=== PATIENT | male | born 1965 | race Caucasian/White ===

== ENCOUNTER 2017-03-30 11:04 | Emergency (ER) | payer BC ==
--- NOTE | 2017-03-30 11:37 | PDOC ---
History of Present Illness - General Chief Complaint: Syncope/Near Syncope Stated Complaint: syncope Time Seen by Provider: 03/30/17 11:13 - History of Present Illness Initial Comments: 03/30/17 12:01 Chief complaint: Syncope History of present illness: 52 years old no significant past medical history suffered a partially torn calf muscle to his right calf yesterday while playing basketball. Was seen and evaluated by orthopedics determined not to have an Achilles rupture was discharged home. Last night patient woke up at approximately 3 AM with some discomfort to his calf. Decided to go downstairs to ice and elevate it. He sit up from bed walk to the bathroom began to experience lightheadedness. When he arrived to the through his lightheadedness was worse he felt as if he was given a pass out and passed out. Mild head injury patient woke up on the ground went back to bed. This morning after discussing with his [id number] presents to the emergency department for evaluation. Currently asymptomatic. Denies any headache dizziness chest pain shortness of breath and nausea no vomiting no diarrhea complaining of moderate pain to his right calf is persistent constant worse with movement no alleviating factors. Last night the dizziness he experienced was transient, moderate to severe in severity, exacerbated by change in position, standing up. Resolved after the syncopal episode. No other exacerbating or alleviating factors Past History - Past Medical History Allergies/Adverse Reactions: Allergies Allergy/AdvReac Type Severity Reaction Status Date / Time Penicillins Allergy Severe Verified 03/30/17 11:30 Home Medications: Ambulatory Orders NK [No Known Home Medication] 03/30/17 Review of Systems - Review of Systems Comments:: 03/30/17 12:02 ROS: A complete review of 10 out of 10 review of systems is taken and is negative apart from what is previously mentioned below and in the HPI. *Physical Exam - Physical Exam Comments: 03/30/17 12:03 Vitals: Triage Vital signs reviewed General Appearance: no acute distress, well nourished well developed, Head: Atraumatic, Eyes: Pupils equal reactive round, extraocular movement intact Throat: Posterior oropharynx without erythema, mucous membranes moist, Neck: Supple;No Nucal rigidity Chest Wall: Nontender Cardiac: Regular rate and rhythym, no murmurs, no rubs, no gallops, Lungs: Clear to auscultation bilateral, good air movement bilaterally, Abdomen: Soft, non distended, normal bowel sounds, non tender to palpation Extremities: Swelling and tenderness to right calf. Tenderness palpation posteriorly. Achilles tendon intact. Neurovascularly intact distally. Skin: Warm and dry, no rashes or lesions, no rash, no petechiae Neuro: AOX3; Cranial Nerves 2-12 grossly intact, Strength intact to all extremities, Sensation intact to all extremities,gait normal Psych: normal mood, normal affect Heart Score/ECG Review - ECG Impressions Comment:: 03/30/17 12:04 EKG performed at 1137 demonstrates rate of 64, rhythm of sinus, axis equal to normal. No ST elevations no T-wave inversions, no evidence of Brugada, WPW, prolonged QT EKG interpreted by me ED Treatment Course - LABORATORY CBC & Chemistry Diagram: 03/30/17 11:50 03/30/17 11:50 - RADIOLOGY Radiology Studies Ordered: Category Date Time Status DUPLEX VASCUL US-1 LEG [US] Stat Ultrasound 03/30/17 11:14 Ordered Medical Decision Making - Medical Decision Making 03/30/17 12:05 52 years old no significant past medical history status post calf muscle tear yesterday while playing basketball awoke from sleep stood up quickly went to the bathroom became lightheaded and suffered a syncopal event. Very minor head injury Differential diagnosis includes vasovagal syncope versus dehydration versus cardiac syncope Normal neurologic examination we'll check EKG blood work hydrate pain medication ultrasound calf observe and reassess 03/30/17 13:44 Reevaluation patient comfortable no apparent distress well-appearing. Nonischemic EKG normal blood work normal head CT normal Doppler. Patient has crutches will follow-up with orthopedics history and examination most consistent with vagal syncope we'll recommend fluids and rest avoiding changing positions quickly he'll follow up with his primary care provider this week and return to ED for severe worsening symptoms or for any concerns. *DC/Admit/Observation/Transfer Diagnosis at time of Disposition: Syncope Qualifiers: Syncope type: vasovagal syncope Qualified Code(s): R55 - Syncope and collapse - Discharge Dispostion Admit: No - Referrals - Patient Instructions Printed Discharge Instructions: DI for Syncope in Adults (Fainting) Additional Instructions: Crutches, Triston wrap for comfort, ice affected calf keep elevated as much for possible discussed with Dr. Perez about obtaining a boot. Return to ED for any chest pain shortness of breath severe worsening symptoms or for any concerns. - Post Discharge Activity
[2017-03-30] MEDS ORDERED: ACETAMINOPHEN INJECTION 100 ML IVPB ONE (12:04)
[2017-03-30] MEDS ORDERED: ACETAMINOPHEN 1000 MG/100 ML VIAL (NON FORMULARY) IVPB ONE (12:06)
[2017-03-30] MEDS ORDERED: SODIUM CHLORIDE 0.9% 1000 ML INFUS.BAG IV ONE (12:07)
[2017-03-30 12:13] LABS: BASO % 0.2 % (0-2.0); EOS % 0.6 % (0-4.5); HEMATOCRIT 43.5 % (35.4-49); HEMOGLOBIN 14.9 GM/dl (11.7-16.9); LYMPH % 15.6 % (8-40); MCH 30.2 pg (25.7-33.7); MCHC 34.2 g/dl (32.0-35.9); MEAN CELL VOLUME 88.3 fl (80-96); MEAN PLT VOLUME 7.6 fl (7.5-11.1); MONO % 7.6 % (3.8-10.2); PLATELET COUNT 179 K/MM3 (134-434); RBC 4.92 M/mm3 (4.00-5.60); WHITE BLOOD COUNT 7.7 K/mm3 (4.0-10.8)
[2017-03-30 12:15] VITALS: BP 132/77; PULSE 65; TEMP 98.5; BMI 31.5
[2017-03-30 12:29] LABS: ANION GAP 3 (8-16); BLOOD UREA NITROGEN 14 mg/dl (7-18); CALCIUM 9.1 mg/dl (8.4-10.2); CHLORIDE 105 mmol/L (98-107); CO2 28 mmol/L (22-28); CREATININE 0.9 mg/dl (0.6-1.3); GLUCOSE,RANDOM 100 mg/dl (74-106); SODIUM 136 mmol/L (136-145)
--- NOTE | 2017-04-03 19:53 | EKG ---
Test Reason : Blood Pressure : / mmHG Vent. Rate : 064 BPM Atrial Rate : 064 BPM P-R Int : 178 ms QRS Dur : 102 ms QT Int : 414 ms P-R-T Axes : 036 -03 014 degrees QTc Int : 427 ms NORMAL SINUS RHYTHM INCOMPLETE RIGHT BUNDLE BRANCH BLOCK BORDERLINE ECG NO PREVIOUS ECGS AVAILABLE Confirmed by DANIELLA MUNROE MD ([id number]) on 04/03/2017 7:52:40 PM Referred By: PRIYANK RICHARDSON Confirmed By:DANIELLA MUNROE MD
== END 2017-03-30 14:10 | disposition home or self-care (01) ==
LOC: FER 11:04
PROC: 3E033NZ Introduction of Analgesics, Hypnotics, Sedatives into Peripheral Vein, Percutaneous Approach (ICD-10-PCS; principal; 2017-03-30)
PROC: 3E0337Z Introduction of Electrolytic and Water Balance Substance into Peripheral Vein, Percutaneous Approach (ICD-10-PCS; 2017-03-30)
DX: R55 Syncope and collapse (principal)
CPT/HCPCS: 36415; 70450-TC; 80048; 84484; 85025; 93005; 93971-TC; 99284-25

== ENCOUNTER 2020-02-02 09:25 | Emergency (ER) | payer BC | END 2020-02-02 11:53 | disposition home or self-care (01) | LOC: JVIRT 09:25 | DX: Z03.818 Encounter for observation for suspected exposure to other biological agents ruled out (principal) | CPT/HCPCS: C9803; G2012-GT; U0003 ==

== ENCOUNTER 2020-09-13 11:03 | Emergency (ER) | payer BC | END 2020-09-13 20:45 | disposition home or self-care (01) | LOC: JVIRT 11:03 | DX: Z20.822 Contact with and (suspected) exposure to COVID-19 (principal) | CPT/HCPCS: C9803; Q3014-GT; U0003; U0005 ==

== ENCOUNTER 2021-11-09 11:50 | Emergency (ER) | payer BC ==
[2021-11-09] MEDS ORDERED: ALBUTEROL SO4 0.083% IH SOL 2.5 MG/3 ML VIAL.NEB. NEB ONE ×2 (12:11→12:16)
[2021-11-09 12:12] VITALS: BP 147/103; PULSE 80; RESP 20; TEMP 98.7; BMI 28.7
[2021-11-09] MEDS ORDERED: DEXAMETHASONE SOD PHOSPHATE 10 MG/1 ML VIAL IVPUSH ONE (12:15)
[2021-11-09] MEDS ORDERED: DEXAMETHASONE SOD PHOSPHATE 10 MG/1 ML VIAL ONE (12:16)
== END 2021-11-09 12:39 | disposition home or self-care (01) ==
LOC: FER 11:50
PROC: 3E0F7GC Introduction of Other Therapeutic Substance into Respiratory Tract, Via Natural or Artificial Opening (ICD-10-PCS; principal; 2021-11-09)
PROC: 3E033NZ Introduction of Analgesics, Hypnotics, Sedatives into Peripheral Vein, Percutaneous Approach (ICD-10-PCS; 2021-11-09)
DX: U07.1 COVID-19 (principal)
CPT/HCPCS: 0241U-QW; 99283-25; J1100

== ENCOUNTER 2022-01-10 11:49 | Emergency (ER) | payer BC ==
[2022-01-10 12:11] VITALS: BP 135/71; PULSE 83; RESP 20; TEMP 98.3; BMI 30.1
== END 2022-01-10 12:37 | disposition home or self-care (01) ==
LOC: FER 11:49
DX: J02.9 Acute pharyngitis, unspecified (principal); R05.1 Acute cough
CPT/HCPCS: 0241U-QW; 99283-25